=== PATIENT | female | born 1990 | race Caucasian/White ===

== ENCOUNTER → 2017-02-21 | Outpatient (REF) | LOC: ZLAB.WCH 18:10 | DX: Z01.89 Encounter for other specified special examinations (principal) ==

== ENCOUNTER 2021-02-16 09:12 | Outpatient (CLI) | payer SELFPAY ==
[2021-02-16] VITALS (8 sets, daily range): BP systolic 103–112; BP diastolic 64–80; PULSE 79–99; TEMP 98.9
[~2021-02-16] VITALS: Ht 167.6 cm; Wt 97.0 kg
[2021-02-16] MEDS ORDERED: PREDNISONE20 MG PO (09:22)
[2021-02-16] MEDS ORDERED: BENTYL 10MG10 MG/CAP PO (09:22)
[2021-02-16] MEDS ORDERED: ZOLOFT 100MG100 MG PO (09:22)
[2021-02-16] MEDS ORDERED: ZITHROMAX 250M250 MG PO (09:22)
[2021-02-16] MEDS ORDERED: ALBUTEROL0.83 MG/ML IH (09:23)
--- NOTE | 2021-02-16 11:45 | NUR ---
Pt tolerated infusion and 1 hr obs period following without issue. INT DC'd with catheter intact. She is escorted out to ED entrance with steady gait.
== END 2021-02-16 11:45 | disposition home or self-care (01) ==
LOC: EUO 09:12
DX: U07.1 COVID-19 (principal); E66.9 Obesity, unspecified
CPT/HCPCS: M0245